=== PATIENT | male | born 1960 | race Caucasian/White ===

== ENCOUNTER 2020-04-19 09:44 | Outpatient (REF) | payer MEDICAID, SELFPAY ==
--- NOTE | 2020-04-22 09:50 | MHC.AU.P13 ---
Adult Audiological Evaluation Date of Visit: 04/19/20 Reason for Appointment: Audiological evaluation due to decreased hearing. Mr. June notes that his hearing has gradually been worsening over the years. He notes that he often doesn't hear his and has to turn the TV up loud. Does patient feel they have a hearing loss?: Yes If Yes, Which Ear?: Both Ears When Was Hearing Difficulty First Noticed?: Several years ago Has hearing been tested previously?: Yes Previous Hearing Test Results: Per patient report- Annual hearing screenings at work indicated a hearing loss. Records were not available to be reviewed today. Hearing Handicap Inventory: HHIE SCORE: 32 Based on HHIE score, patient has: Severe perceived hearing handicap Ear History: Family History of Hearing Loss?: Yes: Father and grandmother History of Ear Wax Buildup: Both Ears Bothersome Tinnitus/Ringing/Noises in Ears: Both ears- Intermittent, notices ~1x/week. Ear used on the phone: Right Ear Blocked/Full Sensation in Ear(s): Both Ears- Occasional feelings of blockage with minor pain that lasts for about 1 day. 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 Medication List: Glipizide 1 capsule PRN, Metformin 1 capsule PRN, Tamsulosin HCL Otoscopy: Right Ear: Unremarkable Left Ear: Unremarkable Tympanometry: Right Ear: Normal Middle Ear System (Type A) Left Ear: Normal Middle Ear System (Type A) Hearing Evaluation: Transducer(s) Used: Insert Earphones, Bone Conduction Method: Conventional Audiometry Stimuli Used: Pure Tones Right Ear: Description of Hearing: Normal hearing from 250-1000 Hz, sloping to a mild sensorineural hearing loss at 2000 Hz and steeply sloping to a moderate to moderately severe sensorineural hearing loss from 2407-4509 Hz. Left Ear: Description of Hearing: Normal hearing from 250-2000 Hz, steeply sloping to a moderate to moderately severe sensorineural hearing loss from 5380-8292 Hz. Speech Recognition Threshold (SRT): Method Used: Monitored Live Voice Stimuli Used: Spondee Words Right Ear: 15 dBHL Left Ear: 15 dBHL Word Discrimination: Method: Recorded Lists Word Lists Used: NU-6 Right Ear: 92% at 65 dBHL Left Ear: 96% at 65 dBHL Recommendations: Recommendations: Audiological re-evaluation in one year. Trial with amplification is recommended. Medical clearance from a physician is required before fitting. Hearing Aid Fitting will be scheduled when all materials arrive. See Hearing Aid Evaluation report for more information. Diagnosis: Primary Diagnosis: H90.3 Bilateral Sensorineural Hearing Loss Secondary Diagnosis: Services Performed: Services Performed: Comprehensive Audiological Evaluation (CPT 06922) Tympanometry (CPT 15931) Signature: Provider: Purvi Coffman, CCC-A
--- NOTE | 2020-04-22 09:52 | MHC.AU.P13 ---
Hearing Aid Evaluation- Binaural Date of Visit: 04/19/20 Description of Hearing: Moderate to moderately severe high-frequency hearing loss bilaterally. Summary: Mr. June reports significant difficulties hearing in most situations. He notes that he often cannot hear his and turns the TV up loud. Mr. 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 Today's testing indicates a moderate to moderately severe sensorineural hearing loss bilaterally. Binaural amplification is recommended in order to facilitate improved communication. Hearing aid options were discussed today. Mr. June is interested in REGINA style hearing aids. Hearing Instrument Selection: Right Ear: Goat Herder: [employer] Model: [employer] M70-13T Battery Size: 13 Color: P5 Lapidarist: Size 1 M Left Ear: Goat Herder: [employer] Model: [employer] M70-13T Battery Size: 13 Color: P5 Lapidarist: Size 1 M Diagnosis Code(s): Primary Diagnosis: H90.3 Bilateral Sensorineural Hearing Loss Signature: Provider: Purvi Coffman, [facility]
--- NOTE | 2020-04-22 09:53 | MHC.AU.MED ---
Medical Clearance for Hearing Instrumentation Date: 04/22/20 Patient Name: Timothy June Date of : 1960 Dear Erasto Ochoa MD, We have seen your patient on 04/22/20 and have determined that they are a candidate for amplification (See accompanying report). Specifically, they would benefit from: Hearing aid use in both ears There is a statute that addresses Medical Evaluation Requirements prior to fitting a patient with a hearing aid. According to [place] statute 265 CMR:6.03(1), (a) General. Except as provided in 265 CMR 6.03(1)(b), a hearing officer shall not sell a hearing aid unless the prospective user has presented to the hearing officer a written statement signed by a licensed physician that states that the patient's hearing loss has been medically evaluated and the patient may be considered a candidate for a hearing aid. The medical evaluation must have taken place within the preceding six months. Please note: Due to the [place] Statute referenced above, we cannot accept a signature other than that of a licensed physician. ENGINEER [employer]ILS and PA signatures cannot be accepted. I am in agreement with the above recommendation. There is no medical contraindication for hearing instrumentation. Physician Signature Date Physician Name (Printed)
== END 2020-04-19 09:45 | disposition home or self-care (01) ==
LOC: HO.SH 09:44
PROVIDERS: PCP Internal Medicine; Referring Provider Internal Medicine; Visit Provider Internal Medicine
DX: H90.3 Sensorineural hearing loss, bilateral (principal)
CPT/HCPCS: 92557; 92567; 92591

== ENCOUNTER 2020-05-09 13:43 | Outpatient (REF) | payer MEDICAID, SELFPAY | END 2020-05-09 13:44 | disposition home or self-care (01) | LOC: HO.HAP 13:43 | PROVIDERS: PCP Internal Medicine; Referring Provider Internal Medicine; Visit Provider Internal Medicine | DX: Z46.1 Encounter for fitting and adjustment of hearing aid (principal); H90.3 Sensorineural hearing loss, bilateral | CPT/HCPCS: V5011; V5020; V5160; V5261 ==

== ENCOUNTER 2020-06-03 12:09 | Outpatient (REF) | payer MEDICAID, SELFPAY | END 2020-06-03 12:10 | disposition home or self-care (01) | LOC: HO.HAP 12:09 | PROVIDERS: Visit Provider Internal Medicine | DX: Z13.89 Encounter for screening for other disorder (principal) ==

== ENCOUNTER 2020-09-06 11:31 | Outpatient (REF) | payer MEDICARE, MEDICAID, SELFPAY | END 2020-09-06 11:32 | disposition home or self-care (01) | LOC: HO.HAP 11:31 | PROVIDERS: Visit Provider Internal Medicine | DX: Z46.1 Encounter for fitting and adjustment of hearing aid (principal) | CPT/HCPCS: V5266 ==

== ENCOUNTER 2021-04-23 10:06 | Outpatient (REF) | payer OTHER, SELFPAY ==
--- NOTE | 2021-04-23 12:47 | MHC.AU.AHA ---
Adult Audiological Evaluation Date of Visit: 04/23/21 Reason for Appointment: History of hearing loss. Patient arrives to determine if there have been any changes in his hearing. Previous Hearing Test Results: At this clinic on 04/19/2020- Normal sloping to moderately-severe sensorineural hearing loss bilaterally Ear History: Ear Deformity: None Reported Recent Ear Drainage: None Reported Recent Ear Pain: None Reported Family History of Hearing Loss?: Yes: Father and grandmother Recent Ear Infections: None Reported Ear Infections in Childhood: None Reported Ear used on the phone: Right Ear History of occupational noise exposure?: Yes: Worked in [employer] for 43 years History: No Medical History: Medical History: Diabetes, Headache, Migraines, Rotator cuff surgery May 2018, C4-C5 fusion August 2019. Hearing Instrument History- Right Ear: Dietary Director: Phonak Model: Sm[employer]o M70-13T Serial Number: [id number] Battery Size: 13 Repair Warranty: 07/29/2023 Dispensed By: [facility] Date of Fittin05/09/2020 Hearing Instrument History- Left Ear: Dietary Director: Phonak Model: Smashruneo M70-13T Serial Number: [id number] Battery Size: 13 Warranty: 07/29/2023 Dispensed By: [facility] Date of Fittin05/09/2020 Otoscopy: Right Ear: Unremarkable Left Ear: Unremarkable Tympanometry: Tympanometry performed due to: To assess integrity of the middle ear system Right Ear: Normal Middle Ear System (Type A) Left Ear: Normal Middle Ear System (Type A) Hearing Evaluation: Transducer(s) Used: Insert Earphones Method: Conventional Audiometry Stimuli Used: Pure Tones Right Ear: Description of Hearing: Normal from 250-1000 Hz, sloping to moderately-severe sensorineural hearing loss Left Ear: Description of Hearing: Normal from 250-1000 Hz, sloping to moderately-severe sensorineural hearing loss Speech Recognition Threshold (SRT): Method Used: Recorded Lists Stimuli Used: Spondee Words Right Ear: 20 dBHL Left Ear: 20 dBHL Word Discrimination: Method: Recorded Lists Word Lists Used: W-22 Right Ear: 84% at 65 dBHL Left Ear: 92% at 65 dBHL Most Comfortable Level (MCL): Right Ear: 65 dBHL Left Ear: 65 dBHL Aided Testing: Aided word discrimination in quiet: 100% at 50 dBHL Aided word discrimination in noise (+10 SNR): 96% at 50 dBHL Comparison: Compared to the most recent evaluation: Hearing is stable. Recommendations: Audiological re-evaluation in one year. See Hearing Aid Follow-Up note for more information. Diagnosis: Primary Diagnosis: H90.3 Bilateral Sensorineural Hearing Loss Signature: Provider: Purvi Sheehan, MARCELO-A
--- NOTE | 2021-04-23 12:48 | MHC.AU.HFU ---
Hearing Instrument Follow-Up- Binaural Date of Visit: 04/23/21 Right Ear: Thread Milling Machine Set Up Operator: Phonak Model: miieo M70-13T Serial Number: [id number] Repair Warranty: 07/29/2023 Battery Size: 13 Color: P5 Network Director: Size 1 M Type of Dome: Small open Type of Wax Guard: Cerushield Dispensed By: [facility] Date of Fittin05/09/2020 Left Ear: Thread Milling Machine Set Up Operator: Phonak Model: Audeo M70-13T Serial Number: [id number] Repair Warranty: 07/29/2023 Battery Size: 13 Color: P5 Network Director: Size 1 M Type of Dome: Small open Type of Wax Guard: Cerushield Dispensed By: [facility] Date of Fittin05/09/2020 Follow-Up Summary: Patient was seen for audiological re-evaluation (see separate report for details). He reports that every few days, his right hearing aid seems to shut off by itself. If he taps it, the sound will come back on. Hearing aid maintenance performed on both instruments. The right hearing aid was placed in the dehumidifier in case of a moisture issue. The right 1M floriculture teacher was also replaced, in case of an intermittency with the wires. No programming changes made today. Recommendations: Recommendations: Patient will let us know if the right hearing aid continues to cut out. If so, it will need to be sent to [facility] for repair. Dispensed 42 batteries. Diagnosis Code(s): Primary Diagnosis: H90.3 Bilateral Sensorineural Hearing Loss Signature: Provider: Purvi Sheehan, MARCELO-A
== END 2021-04-23 10:07 | disposition home or self-care (01) ==
LOC: HO.SH 10:06
PROVIDERS: Visit Provider Internal Medicine
DX: Z46.1 Encounter for fitting and adjustment of hearing aid (principal); H90.3 Sensorineural hearing loss, bilateral
CPT/HCPCS: 92557; 92567; V5266

== ENCOUNTER 2023-08-20 10:40 | Outpatient (REF) | payer OTHER, SELFPAY ==
[2023-08-20 14:39] LABS: MANUAL DIFF FLAG NO
[2023-08-20 14:40] LABS: Basophils Percent Auto 0.1 % (0-2); Eosinophils Absolute Auto 0.1 X10*3/uL (0.0-0.4); Eosinophils Percent Auto 0.9 % (0-4); Hematocrit 48.7 % (42.0-52.0); Hemoglobin 16.1 g/dl (14.0-18.0); Imm Gran Abs Auto 0.06 X10*3/uL (0.00-0.03); Imm Gran Pct Auto 0.7 % (0.0-0.4); Lymphocytes Absolute Auto 1.6 X10*3/uL (1.2-4.9); Lymphocytes Percent Auto 19.4 % (20-40); Mean Corpuscular HGB Conc 33.1 g/dl (31.0-36.0); Mean Corpuscular Hemoglobin 28.1 pg (27.0-33.0); Mean Corpuscular Volume 85.1 fL (80.0-98.0); Mean Platelet Volume 10.9 fL (9.4-12.4); Monocytes Absolute Auto 0.5 X10*3/uL (0.1-1.2); Monocytes Percent Auto 6.1 % (2-11); Neutrophils Absolute Auto 5.9 x10*3/uL (2.0-8.3); Neutrophils Percent Auto 72.8 % (45-73); Platelet Count 148 X10*3/uL (160-400); Red Blood Count 5.72 X10*6/uL (4.60-5.80); Red Cell Distribution Width 13.2 % (11.0-16.0); White Blood Count 8.1 X10*3/uL (4.8-10.8)
[2023-08-20 14:54] LABS: Estimated Average Glucose 283 mg/dL; Hemoglobin A1c % 11.5 % (<6.0)
[2023-08-20 14:57] LABS: Alanine Aminotransferase 62 U/L (0-40); Albumin Level 4.2 g/dL (3.5-5.0); Alkaline Phosphatase 134 U/L (39-117); Anion Gap 14 (12-20); Aspartate Amino Transferase 45 U/L (5-37); Bilirubin Total 0.8 mg/dL (0.0-1.0); Blood Urea Nitrogen 15 mg/dL (9-16); Calcium 9.5 mg/dL (8.4-10.2); Carbon Dioxide 24 mmol/L (22-29); Chloride 104 mmol/L (96-108); Cholesterol 181 mg/dL (<200); Estimated Glomerular Filt Rate > 60; Glucose Fasting 279 mg/dL (60-99); HDL Cholesterol 52 mg/dL (>40); Iron 71 mcg/dL (45-160); LDL Cholesterol Calculated 97 mg/dL (<100); Percent Iron Saturation 24 % (15-50); Potassium 4.1 mmol/L (3.3-5.1); Sodium 138 mmol/L (135-145); Total Iron Binding Capacity 295 mcg/dL (228-428); Triglycerides 162 mg/dL (<150); Unsaturated Iron Binding 224 ug/dL
[2023-08-20 15:19] LABS: TSH reflex Free T4 1.19 uIU/mL (0.32-4.0)
[2023-08-20 15:26] LABS: Folate 7.7 ng/mL (> or = 4.0); Vitamin B12 316 pg/mL (200-900)
[2023-08-20 15:27] LABS: Creatinine Urine 86.39 mg/dL; Microalbum/Creatinine Ratio Ur 63.6 ug/mg cr (<30)
== END 2023-08-20 10:41 | disposition home or self-care (01) ==
LOC: HO.CHCLDS 10:40
PROVIDERS: Visit Provider Internal Medicine
DX: E11.65 Type 2 diabetes mellitus with hyperglycemia (principal)
CPT/HCPCS: 36415; 80053; 80061; 82043; 82570; 82607; 82746; 83036; 83540; 84443; 85025

== ENCOUNTER 2024-09-08 10:50 | Outpatient (REF) | payer MEDICARE, MEDICAID, SELFPAY ==
--- OUTSIDE RECORDS SUMMARY | 2024-09-08 11:45 | XMS_ITS | Encounter Summary ---
Author Organization [employer] Address [address] [place] [address] Care Team Providers Care Leach Runner Name Role Phone Erasto Carbajal MD Primary Care Prov ider Reason for Visit * Reason Comments Med Refill Encounter Details Date Type Department Care Team (Late st Contact Info) Description 09/01/2023 Refill [facility] [address], [place] [phone] Erasto Carbajal MD [address] [place] [address] Mild intermittent asthma, unspecified whether complicated Social History Tobacco Use Types Packs/Day Years Used Date Smoking Tobacco: Never Smokeless Tobacco: Never Alcohol Use Standard Drinks/Week Comments Never 0 (1 standard drink = 0.6 oz pur e alcohol) PHQ-2 Answer Date Recorded Patient Health Questionnaire-2 Score 2 03/05/2023 Housing Stability Answer Date Recorded What is your housing situation today? I have dangelo jacksno 03/19/[address] you li ve. Do you have problems with any of the following? None of the above 03/19/2023 Food Insecurity Answer Date Recorded Within the past 12 months, y ou worried that your food would run out before you got money to buy more: Never True 03/19/2023 Within the past 12 months,th e food you bought just didn't last and you didn't have enough money to get more: Never True Transportation Answer Date Recorded In the past 12 months, has l ack of transportation kept you from medical appts, meetings, work or from getting things needed for daily living? No 03/19/2023 Utilities Answer Date Recorded In the past 12 months, has t he electric, gas, oil or water company threatened to shut off services in your home? No 03/19/2023 Depression Answer Date Recorded Patient Health Questionnaire-2 Score 2 03/05/2023 Sex and Gender Information Value Date Recorded Sex Assigned at Male 03/30/2022 10:36 AM EDT Legal Sex Male 10:36 AM EDT Gender Identity Male 03/30/2022 10:36 AM EDT Sexual Orientation Straight 03/30/2022 10 :36 AM EDT documented as of this encounter Plan of Treatment Upcoming Encounters Date Type Department Care Team ([facility] st Contact Info) Description 12/18/2024 10:00 AM EDT Medication Management [facility] [address], [place] [phone] Regina Headley, PharmD [address] [place] [address] documented as of this encounter Visit Diagnoses Diagnosis Mild intermittent asthma, unspecified whether complicated documented in this encounter Care Teams Leach Runner Relationship Specialty Start Date End Date Erasto Carbajal MD [address], [place] [phone] PCP - General Internal Medicine 08/24/19 documented as of this encounter
--- OUTSIDE RECORDS SUMMARY | 2024-09-08 11:45 | XMS_ITS | Data Portability ---
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 Fatigued by end of treatment; weakness into ER and flexion strengthening. Plan: Continue PT @ 2x/wk for one more week then 1x a week fo 3 wks then d/c to I HEP, to decrease pain, increase ROM, optimize mechanics for functional movement, and facilitate independence in ADL's. [email or web address] Not available 08/02/2024 08:33:20 08/09/2024 08/09/2024 Assessment: Making slow steady progress increasing ROM with ongoing tenderness in bicep area. Improving functional strength and mobility. Plan: Continue PT @ 2x/wk for one more week then 1x a week fo 2 wks then d/c to I HEP, to decrease pain, increase ROM, optimize mechanics for functional movement, and facilitate independence in ADL's. [email or web address] Not available 08/09/2024 08:50:30 08/18/2024 08/18/2024 Assessment: Improving overall functional strength and mobility but with ongoing tenderness in bicep area. Plan: Continue PT @ 1x a week for 1 more wk then d/c to I HEP, to decrease pain, increase ROM, optimize mechanics for functional movement, and facilitate independence in ADL's. [email or web address] Not available 08/18/2024 08:44:48 08/23/2024 08/23/2024 Assessment: Continues to make steady progress increasing ROM and strength, mild tenderness in bicep area Plan: D/c to I HEP Not available 08/23/2024 09:02:00 Plan of Treatment Reminders Order Date Submit Date Provider Last Modified By Organization Details Last Modified Time Details Appointments RECHECK 15 2024 01:00P M Cynthia Wheeler MD Not available Not available Not available Lab None recorded. Referral None recorded. Procedures None recorded. Surgeries None recorded. Imaging MRI, shoulder, w/o contrast - L shoulder MRI without contrast ?ing retear 2024 025 [email or web address] [facility] ([facility] [address], [place], [address], 09/04/2024 17:44:02 Medication Orders None recorded. Patient TargetsNo targets recorded. Patient InstructionsNo instructions recorded. Reason for Referral None Reported. Problems Name Problem SNOMED Code Status Onset Date Resolution Date Notes Provider Name and Address Organization Details Recorded Time Sprain of shoulder rotator cuff 880767571538 Active 2018 Problem Code: S43.421A ; Problem Code Type: ICD-10; Status: 'A'; Not Available [facility] 4 11:28:39 Problem Notes None recorded. Procedures Surgical History Date Name Laterality Status Provider Name and Address Organization Details Recorded Time 4 83020 Therapeutic Exercise (1:1) completed Sonam Goff PTA [address], [place], [address], [facility] 04/25/2024 12:09:19 4 28698: Hot or Cold Pack completed Sonam Goff [employer] INSPECT[employer] [address], [place], [address], [facility] 04/25/2024 12:09:19 4 75333: Manual therapy completed Sonam Goff [employer] [address], [place], [address], [facility] 04/25/2024 12:09:19 4 87592 Therapeutic Exercise (1:1) completed Serjio Mayes, PT [address], [place], [address], [facility] 04/23/2024 18:55:02 4 24589: Hot or Cold Pack completed Serjio Mayes, PT [address], [place], [address], [facility] 04/20/2024 15:22:51 4 21641: Manual therapy completed Serjio Mayes, PT [address], [place], [address], [facility] 04/20/2024 15:22:52 4 05744 Therapeutic Exercise (1:1) completed Sonam Goff [employer] [address], [place], [address], [facility] 04/19/2024 12:18:34 4 05745: Hot or Cold Pack completed Sonam Goff [employer] INSPECT[employer] [address], [place], [address], [facility] 04/18/2024 14:53:31 4 64294: Manual therapy completed Sonam Goff [employer] INS[employer]OR [address], [place], [address], [facility] 04/19/2024 12:18:38 4 05737 Therapeutic Exercise (1:1) completed Sonam Goff PTA [address], [place], [address], [facility] 04/11/2024 14:40:59 4 22630: Hot or Cold Pack completed Sonam Goff [employer] INSPECTOR [address], [place], [address], [facility] 04/11/2024 14:40:59 4 35799: Manual therapy completed Sonam Goff PTA [address], [place], [address], [facility] 04/11/2024 14:40:59 4 59398 Therapeutic Exercise (1:1) completed Sonam Goff, [employer] [address], [place], [address], [facility] 04/07/2024 15:00:20 4 61556: Hot or Cold Pack completed Sonam Goff, [employer] INSPECTOR [address], [place], [address], [facility] 04/07/2024 15:00:20 4 12018: Manual therapy completed Sonam Goff [employer] INSPECTOR [address], [place], [address], [facility] 04/07/2024 15:00:20 4 65081 Therapeutic Exercise (1:1) completed Sonam Goff [employer] INSPECTOR [address], [place], [address], [facility] 04/06/2024 15:37:11 4 31121: Hot or Cold Pack completed Sonam Goff [employer] W[employer] INSPECTOR [address], [place], [address], [facility] 04/06/2024 15:37:11 4 36210: Manual therapy completed Sonam Goff [employer]AGE W[employer] INSPECTOR [address], [place], [address], [facility] 04/06/2024 15:37:12 4 90443 Therapeutic Exercise (1:1) completed Serjio Mayes, PT [address], [place], [address], [facility] 03/28/2024 14:16:37 58652: Hot or Cold Pack completed Serjio Mayes, PT [address], [place], [address], [facility] 03/28/2024 14:16:37 28027: Manual therapy completed Serjio Sugey, PT [address], [place], [address], [facility] 03/28/2024 14:16:37 84401 Therapeutic Exercise (1:1) completed Serjioshirlene Goelricci, PT [address], [place], [address], [facility] 03/27/2024 06:50:34 38586: Hot or Cold Pack completed Serjioshirlene Mayes, PT [address], [place], [address], [facility] 03/27/2024 10:19:44 82719: Manual therapy completed Serjio Manasaricci, PT [address], [place], [address], [facility] 03/27/2024 10:20:07 48784 Therapeutic Exercise (1:1) completed Serjio Goelricci, PT [address], [place], [address], [facility] 03/23/2024 11:02:59 59513: Low complexity PT Eval completed Serjio Goelricci, PT [address], [place], [address], [facility] 03/23/2024 11:02:52 Imaging Results None recorded. Procedure Notes None recorded. Medical Equipment None Reported. Allergies Allergen ID Allergen Name Allergen Category Reaction Reaction Severity Criticality Documentation Date Start Date Code Code System Note Provider Name and Address Organization Details Recorded Time 174824 morphine medicatio n Not available Not available Not available 02/03/2024 7052 RxNorm STEVEN lott [facility] 10:53:08 206571 tree and shrub pollen environme nt,medica tion cough mild Not available 03/01/2024 85579 UNK JORGITO lott [facility] 07:28:44 658186 house dust mite environme nt cough moderate Not available 03/01/2024 18521 UNK JORGITO BENAVIDES [facility] 4 07:28:44 105415 mold extract environme nt cough moderate Not available 03/01/2024 82201 8 RxNorm JORGITO BENAVIDES [facility] 4 07:28:44 282388 Tree Pollen medicatio n cough moderate Not available 03/01/2024 79921 UNK JORGITO BENAVIDES [facility] 4 15:14:28 Medications Name Sig Start Date Stop Date Status Note LastModified by Organization Details LastModified Time cyclobenzap rine 10 mg tablet TAKE 1 TABLET BY MOUTH THREE TIMES DAILY FOR 10 DAYS 02/28 completed Not Available Not Available Not Available metformin 500 mg tablet TAKE ONE TABLET TWICE DAILY 02/28 completed Not Available Not Available Not Available fluticasone 250 mcg-salmete rol 50 mcg/dose blistr powdr for inhalation INHALE 1 PUFF BY MOUTH TWICE DAILY RINSE MOUTH AFTER USE active Not Available Not Available No t Available aspirin 325 mg tablet TAKE ONE TABLET DAILY FOR 14 DAYS active Not Available Not Available No t Available hydrocodone 5 mg-acetamin ophen 325 mg tablet TAKE 1 TO 2 TABLETS EVERY 6 HOURS NEEDED FOR PAIN 02/28 completed Not Available Not Available Not Available meloxicam 15 mg tablet TAKE ONE TABLET BY MOUTH ONCE DAILY active Not Available Not Available No t Available glipizide 10 mg tablet TAKE ONE TABLET ONCE DAILY BEFORE A MEAL 02/28 completed Not Available Not Available Not Available prednisone 20 mg tablet TAKE ONE TABLET EVERY MORNING FOR FIVE DAYS 02/28 completed Not Available Not Available Not Available acetaminoph en 500 mg tablet TAKE TWO TABLETS THREE TIMES DAILY active Not Available Not Available No t Available docusate sodium 100 mg capsule TAKE ONE CAPSULE DAILY NEEDED 07/03 completed Not Available Not Available Not Available omeprazole 20 mg capsule,del ayed release TAKE TWO CAPSULES BY MOUTH TWICE DAILY 02/28 completed Not Available Not Available Not Available montelukast 10 mg tablet TAKE ONE TABLET DAILY 2023 active Not Available Not Available Not Avai lable hydroxyzine HCl 25 mg tablet TAKE ONE TABLET BY MOUTH THREE TIMES DAILY IN THE MORNING, AT NOON, AND AT BEDTIME NEEDED FOR ANXIETY active Not Available Not Available No t Available finasteride 5 mg tablet TAKE ONE TABLET DAILY active Not Available Not Available No t Available naproxen 500 mg tablet tkk ONE TABLET TWICE DAILY FOR FIVE DAYS active Not Available Not Available No t Available Ventolin HFA 90 mcg/actuati on aerosol inhaler INHALE TWO PUFFS EVERY 4 TO 6 HOURS NEEDED active Not Available Not Available No t Available oxycodone 5 mg tablet TAKE ONE TABLET EVERY 4 HOURS NEEDED 07/03 completed Not Available Not Available Not Available oxycodone HCl-oxycodo ne-ASA 02/28 completed Not Available Not Available Not Available blood pressure test kit-large cuff USE TO check BLOOD pressure ONCE DAILY 07/03 completed Not Available Not Available Not Available Jardiance 25 mg tablet TAKE ONE TABLET DAILY 2024 active Not Available Not Available Not Avai lable Trulicity 1.5 mg/0.5 mL subcutaneou s pen injector 03/01 completed Not Available Not Available Not Available Trulicity 0.75 mg/0.5 mL subcutaneou s pen injector INJECT ONE PEN (=0.75MG) SUBCUTANE OUSLY ONCE A WEEK DIRECTED 03/01 completed Not Available Not Available Not Available Trulicity 3 mg/0.5 mL subcutaneou s pen injector INJECT ONE PEN (=3MG) SUBCUTANE OUSLY ONCE A WEEK 07/03 completed Not Available Not Available Not Available Trulicity 4.5 mg/0.5 mL subcutaneou s pen injector INJECT ONE PEN (=4.5MG) SUBCUTANE OUSLY ONCE A WEEK DIRECTED active Not Available Not Available No t Available Vitals Date Recorded Body height Body mass index (BMI) Body weight Provider Name and Address Organization Details Last Updated DateTime 09/04/2024 177.8 cm 31.6 kg/m2 14589.32 g JORGITO BENAVIDES [place] - [place] [facility] 09/04/2024 08:34:35 Social History Question Answer Notes LastModified by Organizat ion Details LastModified Time Tobacco Smoking Status Never Smoker JORGITO lott [place] - [place] [facility] 03/01/2024 07:28:46 How Many Times Per Week Do You Consume Alcohol? Less Than 1 Time Per Week Information not available 03/01/2024 Do You Or Have You Ever Used E-cigarettes Or Vape? Never Used Electronic Cigarettes Information not available 03/01/2024 What Is Your Relationship Status? Information not available 03/01/2024 Do You Use Any Illicit Or Recreational Drugs? No Information not available 03/01/2024 Do You Or Have You Ever Used Any Other Forms Of Tobacco Or Nicotine? No Information not available 03/01/2024 Sex: Unknown Functional Status None recorded. Mental Status None recorded. Family History Nothing Reported. Medical History Condition Response Allergies/Hayfever Y Coronary Artery Disease N Anxiety/Depression Y Breathing or lung disorders N Emphysema N Nerve Disorders N Thyroid Problems N COPD N Pacemaker N Anemia N Kidney/Bladder Problems N Vascular Disease N Heart Trouble N Heart Attack (MD) N Gastrointestinal Disease N Cholesterol N Diabetes Y Autoimmune disease N Bleeding Disorder N Inflammatory Joint disease N Orthotics N Arthritis Y Seizures/Epilepsy N Blood Clot N AIDS/HIV N Congestive Heart Failure (CHF) N Acid Reflux (GERD) N Cancer N Stroke N Asthma Y Circulation Problems N Peripheral Vascular Disease N Sleep Apnea Y Hepatitis N Heart Disease N Rheumatoid Arthritis N Arrhythmia N Pulmonary Embolism N Headaches N Fibromyalgia N Hypertension N Osteoporosis N Past Encounters Encounter ID Performer Location Encounter Start Date Encounter Closed Date Diagnosis/Indication Diagnosis SNOMED-CT Code Diagnosis ICD10 Code Diagnosis Note [id number] LANDRY Townsend [address] [place] [address] 02/03/2024 10:05:34 02/16/2024 14:19:55 Pain of left shoulder joint 3156874726 1581083 M25.429 [id number] MD Keira Newberry [address] floor [address] [place] [address] 03/01/2024 14:33:30 03/23/2024 13:14:45 Full thickness rotator cuff tear 411427318 M75.689 [id number] MD Keira Newberry [address] floor [address] [place] [address] 03/24/2024 12:08:40 04/18/2024 09:09:01 Follow-up orthopedic assessment [id number] Z47.89 [id number] Serjio Mayes, PT [facility] [address] [place] [address] 03/23/2024 07:57:07 03/23/2024 10:24:53 Rupture of rotator cuff of left shoulder 6598937508 [id number] M75.156 [id number] Serjio Mayes, PT [facility] [address] [place] [address] 03/27/2024 08:02:45 03/27/2024 09:28:14 Rupture of rotator cuff of left shoulder 4163391185 [id number] M75.021 [id number] Serjio Mayes, PT [facility] [address] [place] [address] 03/29/2024 07:46:56 03/29/2024 09:22:42 Rupture of rotator cuff of left shoulder 3971155304 [id number] M75.937 [id number] Serjio Mayes, PT [facility] [address] [place] [address] 04/07/2024 09:45:58 04/07/2024 10:45:15 Rupture of rotator cuff of left shoulder 4118536164 [id number] M75.951 [id number] Serjio Mayes, PT [facility] [address] [place] [address] 04/10/2024 11:16:10 04/10/2024 12:19:46 Rupture of rotator cuff of left shoulder 2588032762 [id number] M75.570 [id number] Serjio Mayes, PT [facility] [address] [place] [address] 04/12/2024 10:47:56 04/12/2024 12:00:30 Rupture of rotator cuff of left shoulder 0558711690 [id number] M75.838 [id number] Serjio Mayes, PT [facility] [address] [place] [address] 04/19/2024 10:43:21 04/19/2024 11:46:04 Rupture of rotator cuff of left shoulder 6134810496 [id number] M75.899 [id number] Serjio Mayes, PT [facility] [address] [place] [address] 04/21/2024 08:51:59 04/21/2024 09:55:38 Rupture of rotator cuff of left shoulder [id number] M75.440 [id number] Serjio Mayes, PT [facility] [address] [place] [address] 04/25/2024 12:17:44 04/25/2024 13:17:37 Rupture of rotator cuff of left shoulder 7249306788 [id number] M75.488 [id number] Serjio Mayes, PT [facility] [address] [place] [address] 05/01/2024 08:18:02 05/01/2024 09:10:00 Rupture of rotator cuff of left shoulder 8978334082 [id number] M75.656 [id number] Serjio Mayes, PT [facility] [address] [place] [address] 05/03/2024 08:23:37 05/03/2024 09:03:54 Rupture of rotator cuff of left shoulder 4249436687 [id number] M75.358 [id number] Avis Kenneth, [employer] [facility] [address] [place] [address] 05/04/2024 08:54:20 05/19/2024 15:35:06 [id number] Serjio Mayes, PT [facility] [address] [place] [address] 05/10/2024 09:22:16 05/10/2024 10:07:17 Rupture of rotator cuff of left shoulder 8001952666 [id number] M75.247 [id number] Serjioshirlene Goelricci, PT [facility] [address] [place] [address] 05/17/2024 09:17:10 05/17/2024 10:08:56 Rupture of rotator cuff of left shoulder 5715789017 [id number] M75.233 [id number] Serjio Mayes, PT [facility] [address] [place] [address] 05/19/2024 06:54:34 05/19/2024 09:53:52 Rupture of rotator cuff of left shoulder 7888344160 [id number] M75.450 [id number] Serjio Mayes, PT [facility] [address] [place] [address] 05/22/2024 09:22:15 05/22/2024 10:37:26 Rupture of rotator cuff of left shoulder [id number] M75.622 [id number] MD JULITO [facility] [address] [place] [address] 06/02/2024 09:22:42 06/02/2024 09:55:31 Rupture of rotator cuff of left shoulder [id number] M75.328 [id number] Serjio Mayes, PT [facility] [address] [place] [address] 06/05/2024 09:51:25 06/05/2024 10:40:46 Rupture of rotator cuff of left shoulder [id number] M75.146 [id number] Cynthia Wheeler MD [facility] [address] [place] [address] 06/09/2024 07:48:45 06/09/2024 08:49:43 Rupture of rotator cuff of left shoulder [id number] M75.767 [id number] Gabbi Gastelum DPT [facility] [address] [place] [address] 06/12/2024 07:22:23 06/12/2024 08:15:21 Rupture of rotator cuff of left shoulder [id number] M75.894 [id number] Gabbi Gastelum DPT [facility] [address] [place] [address] 06/16/2024 07:48:42 06/16/2024 09:01:16 Rupture of rotator cuff of left shoulder [id number] M75.331 [id number] Serjio Goelricci, PT [facility] [address] [place] [address] 06/21/2024 08:22:38 06/21/2024 09:17:56 Rupture of rotator cuff of left shoulder [id number] M75.169 [id number] MD JULITO New[facility] [address] [place] [address] 07/03/2024 09:23:57 07/17/2024 12:05:00 Follow-up orthopedic assessment [id number] Z47.89 [id number] Serjio Mayes, PT [facility] [address] [place] [address] 06/23/2024 07:50:01 06/23/2024 08:25:15 Rupture of rotator cuff of left shoulder [id number] M75.603 [id number] Serjio Mayes, PT [facility] [address] [place] [address] 06/26/2024 07:53:31 06/26/2024 08:21:12 Rupture of rotator cuff of left shoulder [id number] M75.789 [id number] Serjio Sugey, PT [facility] [address] [place] [address] 06/28/2024 08:16:07 06/28/2024 09:06:33 Rupture of rotator cuff of left shoulder [id number] M75.921 [id number] MD [facility] [address] [place] [address] 07/03/2024 08:22:03 07/03/2024 10:25:51 Rupture of rotator cuff of left shoulder [id number] M75.396 [id number] Serjio Mayes, PT [facility] [address] [place] [address] 07/05/2024 08:26:18 07/05/2024 09:01:02 Rupture of rotator cuff of left shoulder [id number] M75.378 [id number] Serjio Mayes, PT [facility] [address] [place] [address] 07/10/2024 07:52:20 07/10/2024 08:34:30 Rupture of rotator cuff of left shoulder [id number] M75.569 [id number] Serjio Mayes, PT [facility] [address] [place] [address] 07/12/2024 07:48:25 07/12/2024 08:41:25 Rupture of rotator cuff of left shoulder [id number] M75.162 [id number] Gabbidonavon Gastelum, DPT [facility] [address] [place] [address] 07/17/2024 07:38:11 07/17/2024 09:22:53 Rupture of rotator cuff of left shoulder [id number] M75.470 [id number] Serjio Mayes, PT [facility] [address] [place] [address] 07/19/2024 07:46:27 07/19/2024 08:31:13 Rupture of rotator cuff of left shoulder [id number] M75.690 [id number] Serjio Mayes, PT [facility] [address] [place] [address] 07/24/2024 07:51:43 07/24/2024 08:31:17 Rupture of rotator cuff of left shoulder [id number] M75.432 [id number] Serjio Mayes, PT [facility] [address] [place] [address] 08/02/2024 07:12:53 08/02/2024 08:03:04 Rupture of rotator cuff of left shoulder [id number] M75.186 [id number] Serjio Mayes, PT [facility] [address] [place] [address] 08/09/2024 07:19:56 08/09/2024 08:06:17 Rupture of rotator cuff of left shoulder [id number] M75.806 [id number] Serjio Mayes, PT [facility] [address] [place] [address] 08/18/2024 07:23:38 08/18/2024 10:11:05 Rupture of rotator cuff of left shoulder [id number] M75.798 [id number] Serjio Mayes, PT [facility] [address] [place] [address] 08/23/2024 07:58:20 08/23/2024 08:53:09 Rupture of rotator cuff of left shoulder [id number] M75.593 [id number] MD JULITO New[facility] [address] [place] [address] 09/04/2024 08:30:04 09/04/2024 08:49:45 Pain of left shoulder joint [id number] [id number] M25.512 Health Concerns Section Related Observation LastModified by Organization Detai ls LastModified Time None Recorded Concern Status LastModified by Organization Details LastModified Time None Recorded Advance Directives Directive None Recorded Payers Encounter Date Sequence Insurance Name Policy Number Policy Nair Covered Member ID Nair Member ID Guarantor Name 08/02/2024 1 [place] [employer] Timothy M Strange [id number] 1 Timothy M Strange 08/09/2024 1 [place] [employer] Timothy M Strange [id number] 1 Timothy M Strange 08/18/2024 1 [place] [employer] Timothy M Strange [id number] 1 Timothy M Strange 08/23/2024 1 [place] [employer] Timothy M Strange [id number] 1 Timothy M Strange 09/04/2024 1 [place] [employer] Timothy M Strange [id number] 1 Timothy M Strange Notes Date Note Type Note Provider Name and Address Organization Details Recorded Time 08/02/2024 text/html Pt reports 5/10 px in bicep area, slowly feeling stronger. Sonam DANA Goff [address], [place], [address], [facility] 08/02/2024 08:34:15 08/09/2024 text/html Pt reports 5/10 px in bicep area and notes some new tingling down into hand with certain shoulder movements. Sonam DANA Goff [address], [place], [address], [facility] 08/09/2024 08:50:57 08/18/2024 text/html Pt reports 2/10 px iat rest with some occasional increase in px to 5/10 in bicep area with soreness. Sonam Goff PTA [address], [place], [address], [facility] [facility] 08/18/2024 08:45:09 08/23/2024 text/html Pt reports 2/10 px in bicep area, overall happy with progress. Sonam DANA Goff [address], [place], [address], [facility] 08/23/2024 09:02:31 09/04/2024 text/html Surgery: Left shoulder arthroscopic intra-articular 1 anchor subscapularis, 1+1 double row supraspinatus repair, arthroscopic long head biceps tenodesis, [facility]. Interval History: The patient returns today in follow-up now approximately 6 months out from surgery as above. Doing fairly well. Recently completed physical therapy. Continues with exercises on his own at home, currently working on end range stretching and gradual strengthening progression. Pain levels have improved but still getting some achiness over the lateral brachium. Occasional crepitus. No issues with incisions. No numbness or tingling in arm or hand. Past family, medical, social history and review of systems have been reviewed and updated on the medical history sheet saved to the patient's chart. A 12-point review of systems is negative x12 except as noted above and/or on the medical history sheet. Examination: Pleasant 64-year-old gentleman in no acute distress. On exam of the Left upper extremity, arthroscopic portal incisions are nicely healed. No significant swelling or bruising. No evidence for Gregg deformity. Active forward elevation 170, passive ER 65 with a reproducible click at approximately 30 degrees ER; IR L4. 5/5 with ER and IR, 4/5 with empty can. Pain with resisted ER and empty can testing. Posterior shoulder discomfort with Yergason's and bear hug. Sensation intact in axillary and LABC distributions. Fires EPL, FPL and intrinsics. Hand is warm and well perfused. Imaging: Deferred Impression: 64 year old right hand dominant gentleman, now approximately 6 months out from surgery as above. Still having some pain, though somewhat improved over the past 2 months. Plan: His exam overall is reassuring for healing repairs, but given lingering symptoms we decided to go ahead with an MRI to ensure that everything is indeed looking okay. We will plan to see the patient back once the MRI is done to review the results and talk about next steps based on the findings. [employer] [facility] speech recognition edge cutter software was used to create portions of this document. An attempt at proofreading has been made to minimize errors. Please call for corrections. Cynthia Wheeler MD [address] [place], [place] [address]tyson Suite [facility], [place], [address], [facility] - [facility] 09/04/2024 08:49:42
--- OUTSIDE RECORDS SUMMARY | 2024-09-08 11:45 | XMS_ITS | Encounter Summary ---
Author Organization [employer] Address [address] [place] [address] Care Team Providers Care City Secretary Name Role Phone Erasto Carbajal MD Primary Care Prov ider Encounter Details Date Type Department Care Team (Late Contact Info) Description 02/18/2023 Orders Only [facility] MED & PEDS [address] [place] [address] Leandra Cervantes LPN Social History Tobacco Use Types Packs/Day Years Used Date Smoking Tobacco: Never Assessed Sex and Gender Information Value Date Recorded Sex Assigned at Male 03/30/2022 10:36 AM EDT Legal Sex Male 10:36 AM EDT Gender Identity Male 03/30/2022 10:36 AM EDT Sexual Orientation Straight 03/30/2022 10 :36 AM EDT documented as of this encounter Plan of Treatment Upcoming Encounters Date Type Department Care Team (Late st Contact Info) Description 12/18/2024 10:00 AM EDT Medication Management [facility] MED & PEDS [address] [place] [address] Regina Headley, PharmD [address] [place] [address] documented as of this encounter Visit Diagnoses Not on filedocumented in this encounter Care Teams City Secretary Relationship Specialty Start Date End Date Erasto Carbajal MD [address] [place] [address] PCP - General Internal Medicine 3/26/20 documented as of this encounter
--- OUTSIDE RECORDS SUMMARY | 2024-09-08 11:45 | XMS_ITS | Encounter Summary ---
Author Organization [employer] Address [address] [facility] [address] [place] [address] Care Team Providers Care Senior Structural Engineer Name Role Phone Erasto Carbajal MD Primary Care Prov ider Reason for Visit * Reason Onset Date Comments Medication Question 02/18/2024 Encounter Details Date Type Department Care Team (Late st Contact Info) Description 02/18/2024 Telephone [facility] MEDICINE [address] [place] [address] Erasto Carbajal MD [address] [place] [address] Medication Question Social History Tobacco Use Types Packs/Day Years Used Date Smoking Tobacco: Never Smokeless Tobacco: Never Alcohol Use Standard Drinks/Week Comments Never 0 (1 standard drink = 0.6 oz pur e alcohol) PHQ-2 Answer Date Recorded Patient Health Questionnaire-2 Score 2 03/05/2023 Housing Stability Answer Date Recorded What is your housing situation today? I have dangelo jackson 03/19/[address] you li [...] AM EDT documented as of this encounter Miscellaneous Notes * Telephone Encounter - Yuri Arevalo - 02/18/2024 3:36 PM EDT Tc from [place] with Pharmacy and [facility] stating that they believe pt would benefit on being on a Statin medication due to ADA guidelines for patients over 40 yrs documented in this encounter Plan of Treatment Upcoming Encounters Date Type Department Care Team (Late st Contact Info) Description 12/18/2024 10:00 AM EDT Medication Management [facility] MED & PEDS [address] [place], [place] [phone] Regina Headley, PharmD [address] [place] [address] documented as of this encounter Visit Diagnoses Not on filedocumented in this encounter Care Teams Senior Structural Engineer Relationship Specialty Start Date End Date Erasto Carbajal MD [address] [place] [address] PCP - General Internal Medicine 08/24/19 documented as of this encounter
--- OUTSIDE RECORDS SUMMARY | 2024-09-08 11:45 | XMS_ITS | Clinical Summary ---
Author Organization [employer] Address [address] [place] [address] 7[address] [place] [address] Care Team Providers Care Medical Corps Officer Name Role Phone Erasto Carbajal MD Primary Care Prov ider Allergies No known active allergies Medications albuterol 108 (90 Base) MCG/ACT inhalerIndicati ons:Mild intermittent asthma, unspecified whether complicated INHALE TWO PUFFS EVERY 4 TO 6 HOURS NEEDED 8.5 g 08/20/19 24 Active insulin pen needle 29G x 5mm misc Use as instructed 100 each 12 10/05/19 24 025 Active Blood Pressure kit 1 kit Once per day. 1 kit 11/24/19 24 Active empagliflozin (Jardiance) 25 MG Take 1 tablet (25 mg) by mouth Once per day. 90 tablet 3 01/27/20 24 025 Active meloxicam (Mobic) 15 MG tablet TAKE ONE TABLET BY MOUTH ONCE DAILY 30 tablet 2 03/21/20 24 Active hydrOXYzine HCl (Atarax) 25 MG tablet Take 1 tablet (25 mg) by mouth if needed in the morning, at noon, and at bedtime for anxiety. 90 tablet 3 03/28/20 24 Active finasteride (Proscar) 5 MG tablet Take 5 mg by mouth Once per day. Do not crush, chew, or split. Active Fluticasone-Jcarlos meterol 250-50 MCG/ACT aerosol powder Inhale 250 mg 2 times daily. 60 each 3 03/28/20 24 Active Dulaglutide (Trulicity) 4.5 MG/0.5ML solution auto-injectorIn dications:Type 2 diabetes mellitus with hyperglycemia, without long-term current use of insulin (CMS/HCC) Inject 4.5 mg under the skin 1 (one) time per week. 2 mL 5 09/09/19 25 Active Dulaglutide (Trulicity) 4.5 MG/0.5ML solution auto-injectorIn dications:Type 2 diabetes mellitus with hyperglycemia, without long-term current use of insulin (CMS/HCC) Inject 4.5 mg under the skin 1 (one) time per week. 3 mL 3 03/28/20 24 025 Discontinued(R eorder (will not trigger notification to Pharmacy)) Active Problems Problem Noted Date Diagnosed Date Elevated blood-pressure read ing, without diagnosis of hypertension 10/05/2023 Assessment & Plan (10/05/2023 7:13 PM EDT): Told to keep a bp log at home, keep low sodium diet, if bp >130/90, will consider starting michelle/arb Chronic left shoulder pain 10/05/2023 Assessment & Plan (01/16/2024 10:23 PM EDT): Will provide meloxicam, will refer to ortho Assessment & Plan (10/05/2023 7:14 PM EDT): Will order a left shoulder xray, will place PT referral, apply cold pads, avoid heavy lifting, call back if not improving Liver cyst 07/31/2023 Assessment & Plan (07/31/2023 11:05 AM EST): Incidental finding, will order a liver ct to characterize lesion Kidney cysts 07/31/2023 Assessment & Plan (07/31/2023 11:06 AM EST): Right kidney suspected cyst incidentally found, will order a kidney ultrasound Acute right-sided low back pain with right-sided sciatica 07/31/2023 Assessment & Plan (07/31/2023 11:07 AM EST): Will provide prednisone and muscle relaxant, continue resting, applying ice, and avoid heavy lifting Anxiety 06/30/2023 Assessment & Plan (06/30/2023 12:37 PM EST): Followed by therapist, will provide hydroxyzine to be taken as needed Class 1 obesity 03/05/2023 Obstructive sleep apnea 03/05/2023 Type 2 diabetes mellitus wit h hyperglycemia, without long-term current use of insulin 03/05/2023 Assessment & Plan (03/28/2024 11:59 AM EDT): Improving, will increase trulicity to 4.5mg, jardiance, new labs will be ordered, follow up in 3 months Assessment & Plan (01/27/2024 11:07 AM EDT): Improved, patient complains of diarrhea associated with metformin (will discontinue), also will disocntinue glipizide due to risk of hypoglycemia (he is 63yrs and is living by himself), will start jardiance for renal benefits in addition to aprox 1% drop in A1c. Will also increase trulicity to 3mg, he has lost almost 20lbs. Assessment & Plan (01/16/2024 10:21 PM EDT): Not on target, will increase trulicity to 1.5mg, continue rest of medication, low carb/no sugar diet, follow up in 6 weeks Assessment & Plan (10/05/2023 7:18 PM EDT): Uncontrolled, will increase metformin and will start trulicity, decrease carbohydrate (pasta/bread/rice) eliminate sugars from diet, continue exercise. Assessment & Plan (06/30/2023 12:39 PM EST): Patient refers has kept physically active, he is not taking or checking his glucose, refers will start this week, discussed importance of adequate glucose control, follow up in 3 months with new labs Assessment & Plan (03/05/2023 11:49 AM EDT): On glipizide, refers FBS ranges from 100-120's, will place new lab orders for guidance Benign prostatic hyperplasia with urinary freque ncy 03/05/2023 Assessment & Plan (03/05/2023 11:49 AM EDT): Followed by urology, he will undergo a turp Screening for colon cancer 03/05/2023 Assessment & Plan (03/05/2023 11:50 AM EDT): Patient had colo/endoscopy on december of this year at [facility] will request results Right bundle branch block 03/04/2012 Bradycardia, sinus 03/04/2012 Encounters Date Type Department Care Team Description 09/08/2024 Travel 09/02/2024 Travel 09/01/[address] [facility] MED & PEDS [address] [place], [place] [phone] Erasto Carbajal MD Type 2 diabetes mellitus with hyperglycemia, without long-term current use of insulin ([facility]) (Primary Dx) 08/31/[address] [facility] PEDS [address] [place], [place] [phone] Regina Headley, PharmD 08/11/2024 Orders Only [facility] [address] [place], [place] [phone] Provider, MD Lisa from Last 3 Months Immunizations Name Administration Dates Next Due Hep B, adult 12/16/2021,10/02/2021,08/19/2021 INFLUENZA INJECTABLE QUADRIV ALANT CCIIV4 MDCK Multi-dose vial 03/10/2019 Influenza High-dose Quadriva lent Preservative Free 03/11/2023 Influenza Injectable Quadriv alant Preservative Free IIV4 MDCK 04/21/2022,02/20/2021 Influenza injectable quadriv alent preservative free 02/27/2020 Influenza, High Dose Seasona l, Preservative Free 04/24/2024 Pfizer Covid-19 Vaccine 12+ 09/08/2024 Pneumococcal Conjugate PCV 20 03/11/2023 Tdap 03/11/2023,02/07/2008 Zoster, Recombinant 04/30/2020,02/28/2020 Social History Tobacco Use Types Packs/Day Years Used Date Smoking Tobacco: Never Smokeless Tobacco: Never Tobacco Cessation:Counseling Given: Not Answered Alcohol Use Standard Drinks/Week Comments Never 0 (1 standard drink = 0.6 oz pur e alcohol) Depression Answer Date Recorded Patient Health Questionnaire-9 Score 0 03/28/2024 Patient Health Questionnaire-9 Score 0 03/28/2024 Last PHQ-9: Questionnaire Data Not on file 1 Housing Stability Answer Date Recorded What is your housing situation today? I have dangelo jackson 03/28/[address] you li ve. Do you have problems with any of the following? None of the above 03/28/2024 Food Insecurity Answer Date Recorded Within the past 12 months, y ou worried that your food would run out before you got money to buy more: Never True 03/28/2024 Within the past 12 months,th e food you bought just didn't last and you didn't have enough money to get more: Never True Transportation Answer Date Recorded In the past 12 months, has l ack of transportation kept you from medical appts, meetings, work or from getting things needed for daily living? No 03/28/2024 Utilities Answer Date Recorded In the past 12 months, has t he electric, gas, oil or water company threatened to shut off services in your home? No 03/28/2024 Depression Answer Date Recorded Patient Health Questionnaire-2 Score 0 03/28/2024 Internet Access Answer Date Recorded Internet Access Q1 Yes 03/28/2024 Internet Access Q2 Not on file 03/28/2024 Sex and Gender Information Value Date Recorded Sex Assigned at Male 03/30/2022 10:36 AM EDT Legal Sex Male 10:36 AM EDT Gender Identity Male 03/30/2022 10:36 AM EDT Sexual Orientation Straight 03/30/2022 10 :36 AM EDT Last Filed Vital Signs Vital Sign Reading Time Taken Comments Blood Pressure 160/84 09/08/2024 10:31 AM EDT Pulse 60 09/08/2024 10:31 AM EDT Temperature 36.4 ??C (97.5 ??F) 10/05/2023 10:29 AM E DT Respiratory Rate 20 10/05/2023 10:29 AM EDT Oxygen Saturation 98% 10/05/2023 10:29 AM EDT Inhaled Oxygen Concentration - - Weight 98.9 kg (218 lb) 10/05/2023 10:29 AM EDT Height 177.8 cm (5' 10 ) 10/05/2023 10:29 AM EDT Body Mass Index 31.28 10/05/2023 10:29 AM EDT Plan of Treatment Upcoming Encounters Date Type Department Care Team (Late st Contact Info) Description 12/18/2024 10:00 AM EDT Medication Management [facility] MED & PEDS [address] [place] [address] Regina Headley, PharmD [address] [place] [address] Health Maintenance Due Date Last Done Comments CT Colonography 1958 FIT DNA/Cologuard 1958 FIT 1958 FOBT 1960 Sigmoidoscopy 1958 Alcohol/Substance Use Screening 1970 Hepatitis A Vaccines (1 of 2 - Risk 2-dose series) 1977 RSV Patients and Patients Aged 60 years or older (1 - Risk 60-74 years 1-dose series) 2018 Diabetes: Urine Protein Screening 08/19/2024 08/20/2023, 12/04/2021, 12/04/2020, Additional history exists Lipid Panel 08/19/2024 08/20/2023, 07/0 11/2021, 12/04/2020, Additional history exists Diabetes: Foot Exam 10/04/2024 10/05/2023, 10/05/2023, 10/05/2023, Additional history exists Tobacco Screening 10/04/2024 10/05/2023 Diabetes: Hemoglobin A1C 12/08/2024 042 025, 08/20/2023, 05/19/2022, Additional history exists Depression Screening 03/28/2025 03/28/2024, 03/28/20 24 SDOH Screening 03/28/2025 03/28/2024 Eye Exam 07/28/2026 07/28/2024, 04/27/2023 Colonoscopy 01/26/2028 01/25/2023 Colorectal Cancer Screening 01/26/2028 DTaP/Tdap/Td Vaccines (3 - Td or Tdap) 03/11/2033 03/11/2023, 02/07/2008 Zoster Vaccines Completed 04/30/2020, 02/28/2020 Hepatitis C Screening Completed 08/11/2021 Hepatitis B Vaccines Completed 12/16/2021, 10/02/2021, 08/19/2021 Pneumococcal Vaccine: 50+ Years Completed 03/11/2023 Influenza Vaccine Completed 04/24/2024, , 04/21/2022, Additional history exists COVID-19 Vaccine Completed 09/08/2024, , 08/07/2020, Additional history exists HIB Vaccines Aged Out No longer eligi ble based on patient's age to complete this topic HPV Vaccines Aged Out No longer eligi ble based on patient's age to complete this topic IPV Vaccines Aged Out No longer eligi ble based on patient's age to complete this topic Meningococcal Vaccine Aged Out No finn jose g eligible based on patient's age to complete this topic RSV under 20 months Aged Out No longe r eligible based on patient's age to complete this topic Rotavirus Vaccines Aged Out No longer eligible based on patient's age to complete this topic Procedures Procedure Name Priority Date/Time Associated Diagnosis Comments POCT GLYCATED HEMOGLOBIN, TOTAL Routine 09/08/2024 10:20 AM EDT Type 2 diabetes mellitus with hyperglycemia, without long-term current use of insulin ([facility]) DIABETES EYE EXAM Routine 07/28/2024 2:11 PM EST LIPID PANEL, STANDARD Routine 08/20/2023 10:48 AM EDT Type 2 diabetes mellitus with hyperglycemia, without long-term current use of insulin ([facility]) ALBUMIN, RANDOM URINE W/CREATININE Routine 08/20/2023 9:55 AM EDT COLONOSCOPY Routine 01/25/2023 1:12 PM EDT ZZZ HISTORICAL HEPATITIS C AB W/REFL TO HCV RNA, QN, PCR Routine 08/11/2021 8:38 AM EDT from Last 3 Months or Most Recently Relevant to Health Maintenance Results * (ABNORMAL) POCT A1C (09/08/2024 10:20 AM EDT) Hemoglobin A1C 8.2(A) 4.0 - 6.0 % QC Media Lot # [id number] Lot# Expiration Date Blood 09/08/2024 10:2 0 AM EDT Erasto Ochoa MD POINT OF CARE TEST ENTER/EDIT ORDERABLES Final Result * Hm Diabetes Eye Exam (07/28/2024 2:11 PM EST) Lisa Provider HEALTH MAINTENANCE Final Result * (ABNORMAL) Lipid Panel, Standard (08/20/2023 10:48 AM EDT) Triglycerides 162(H) <150 mg/dL [facility] Comment:Desirable Triglyceri de: less than 150 mg/dLBorderline High Triglyceride 150-199 mg/dLHigh Triglyceride: 200-499 mg/dLVery High Triglyceride: greater than or equal to 5OO mg/dL Cholesterol 181 <200 mg/dL [facility] Comment:Desirable Cholestero l: less than 200 mg/dLBorderline High Cholesterol: 200-239 mg/dLHigh Cholesterol: greater than 239 mg/dL LDL Cholesterol Calculated 97 <100 mg/dL [facility] Comment:Desirable LDL: less than 100 mg/dLNear Optimal/Above Optimal LDL: 110- 129 mg/dLBorderline High LDL: 130-159 mg/dLHigh LDL: 160-189 mg/dLVery High LDL: greater than or equal to 190 mg/dL HDL Cholesterol 52 >40 mg/dL [facility] Comment:Desirable HDL: great er than 40 mg/dL Note: This HDL assay may give artificially low results in patients with liver disease. Blood Venous blood specimen / Unknown 08/20/2023 10:48 AM EDT 08/20/2023 2:25 PM EDT Erasto Ochoa MD LAB BLOOD ORDERABL ES Final Result [facility] [address] [place] [phone] * (ABNORMAL) Albumin, Random Urine W/Creatinine (08/20/2023 9:55 AM EDT) Creatinine, Urine 86.39 mg/dL [facility] Microalbumin Urine 55.0 mg/L [facility] Microalbum Creatinine Ratio Ur 63.6(H) <30 ug/mg cr [facility] Comment:Albumin/Creatinine R atio Reference Ranges: Normal: < 30 ug/mg creatinine Microalbuminuria: 30 - 300 ug/mg creatinineClinical Albuminuria: > 300 ug/mg creatinine 08/20/2023 9:55 AM EDT 08/20/2023 2:24 PM EDT Erasto Ochoa MD LAB URINE ORDERABL ES Final Result [facility] [address] [place] [phone] * Hm Colonoscopy (01/25/2023 1:12 PM EDT) Lisa Mckeon MD HEALTH MAINTENANCE Final Result * HEPATITIS C AB W/REFL TO HCV RNA, QN, PCR (08/11/2021 8:38 AM EDT) HEPATITIS C ANTIBODY NON-REACT BRENNAN NON-REACT BRENNAN [facility] INDEX 0.01 <1.00 [facility] Comment: ?? HCV antibody was non-reactive. There is no laboratory ?? evidence of HCV infection. ?? In most cases, no further action is required. However, if recent HCV exposure is suspected, a test for HCV RNA (test code 28865) is suggested. ?? For additional information please refer to http://education.Given Goods/faq/NDR45f5 (This link is being provided for informational/ educational purposes only.) ?? 08/11/2021 8:38 AM EDT Erasto Ochoa MD HISTORICAL/NON ORD ERABLE LABS Final Result [facility] [address] from Last 3 Months or Most Recently Relevant to Health Maintenance Insurance [place], [place] MEDICARE Member Subscriber Plan / Payer (Ef fective 2024-Present) Name:Timothy June Member ID:[id number] Relation to Subscriber:Self Name:Timothy June Subscriber ID:[id number] Payer ID:[id number] Group ID:Not on file Type:Medicare Address: [facility].[address] [address] [facility] FULL Care Teams Medical Corps Officer Relationship Specialty Start Date End Date Erasto Carbajal MD [address] [place] [phone] PCP - General Internal Medicine 08/24/19
--- OUTSIDE RECORDS SUMMARY | 2024-09-08 11:45 | XMS_ITS | Encounter Summary ---
Author Organization [employer] Address [address] [place] [address] Care Team Providers Care Assistant Commissioner Name Role Phone Erasto Carbajal MD Primary Care Prov ider Reason for Visit * Reason Onset Date Comments Referral 08/09/2023 Encounter Details Date Type Department Care Team ([facility] st Contact Info) Description 08/09/2023 Telephone [facility] [address] [place], [place] [phone] Erasto Carbajal MD [address] [place] [address] Referral Social History Tobacco Use Types Packs/Day Years [...] encounter Miscellaneous Notes * Telephone Encounter - Aurelia Coe - 08/09/2023 9:25 AM EDT Tc from Audra with [facility] calling to inform referral that was sent on 07/31/23 needs to be modified . States should be CT abdominal with and without contrast . Any questions may contact phone # [phone]. documented in this encounter Plan of Treatment Upcoming Encounters Date Type Department Care Team (Late st Contact Info) Description 12/18/2024 10:00 AM EDT Medication Management [facility] [address] [place], [place] [phone] Regina Headley, PharmD [address] [place] [address] documented as of this encounter Visit Diagnoses Not on filedocumented in this encounter Care Teams Assistant Commissioner Relationship Specialty Start Date End Date Erasto Carbajal MD [address] [place], [place] [phone] PCP - General Internal Medicine 08/24/19 documented as of this encounter
--- OUTSIDE RECORDS SUMMARY | 2024-09-08 11:45 | XMS_ITS | Encounter Summary ---
Author Organization [employer] Address [address] [facility] 7t [place] [address] Care Team Providers Care Exercise Scientist Name Role Phone Erasto Carbajal MD Primary Care Prov ider Encounter Details Date Type Department Care Team (Late st Contact Info) Description 08/11/2024 Orders Only [facility] [address] [place] [address] ProviderLisa MD Social History Tobacco Use Types Packs/Day Years [...] Description 12/18/2024 10:00 AM EDT Medication Management [facility] & P[facility] [address] [place] [address] Regina Headley PharmD [address] [place] [address] documented as of this encounter Procedures Procedure Name Priority Date/Time Associated Diagnosis Comments DIABETES EYE EXAM Routine 07/28/2024 2:11 PM EST documented in this encounter Results * Diabetes Eye Exam (07/28/2024 2:11 PM EST) Historical Provider HEALTH MAINTENANCE Final Result documented in this encounter Visit Diagnoses Not on filedocumented in this encounter Additional Health Concerns Assessment Noted Time PHQ-9 Depression Total Score: 0 03/28/20 24 10:57 AM EDT documented as of this encounter Care Teams Exercise Scientist Relationship Specialty Start Date End Date Erasto Carbajal MD [address] [place] [address] PCP - General Internal Medicine 08/24/19 documented as of this encounter
--- OUTSIDE RECORDS SUMMARY | 2024-09-08 11:45 | XMS_ITS | Encounter Summary ---
Author Organization [employer] Address [address] [place] [id number] Care Team Providers Care Mushroom Picker Name Role Phone Erasto Carbajal MD Primary Care Prov ider Encounter Details Date Type Department Care Team (Late st Contact Info) Description 05/20/2022 Orders Only [facility] MEDICINE [address] [place] [address] Erasto Carbajal MD [address] [place] [address] Mixed conductive and sensorineural hearing loss of both ears (Primary Dx) Social History Tobacco Use Types Packs/Day Years [...] Description 12/18/2024 10:00 AM EDT Medication Management [facility] MED & PEDS [address] [place], [place] [phone] Regina Headley, PharmD 230 [place] [address] documented as of this encounter Visit Diagnoses Diagnosis Mixed conductive and sensorineural hearing loss of both ears- Primary documented in this encounter Care Teams Mushroom Picker Relationship Specialty Start Date End Date SinErasto Ureña MD [address] [place] [phone] PCP - General Internal Medicine 08/24/19 documented as of this encounter
--- OUTSIDE RECORDS SUMMARY | 2024-09-08 11:45 | XMS_ITS | Encounter Summary ---
Author Organization [employer] Address [address] [facility] 7[address] [place] [address] Care Team Providers Care Claim Agent Name Role Phone Erasto Carbajal MD Primary Care Prov ider Encounter Details Date Type Department Care Team (Late st Contact Info) Description 04/27/2023 Abstract [facility] [address] [place] [address] Erasto Carbajal MD [address] [place] [address] Social History Tobacco Use Types Packs/Day Years [...] 12/18/2024 10:00 AM EDT Medication Management [facility] MED & PEDS 505 [place], [place] [phone] Regina Headley, PharmD 230 [place] [address] documented as of this encounter Visit Diagnoses Not on filedocumented in this encounter Care Teams Claim Agent Relationship Specialty Start Date End Date Erasto Carbajal MD [address] [place], [place] [phone] PCP - General Internal Medicine 08/24/19 documented as of this encounter
--- OUTSIDE RECORDS SUMMARY | 2024-09-08 11:45 | XMS_ITS | Encounter Summary ---
Author Organization [employer] Address [address] [facility] [address] [place] [address] Care Team Providers Care Sous Chef Name Role Phone Erasto Carbajal MD Primary Care Prov ider Encounter Details Date Type Department Care Team (Late st Contact Info) Description 09/10/2023 Orders Only [facility] MEDICINE [address] [place] [address] ProviderLisa MD Social History Tobacco Use Types Packs/Day Years Used Date Smoking Tobacco: Never Smokeless Tobacco: Never Alcohol Use Standard Drinks/Week Comments Never 0 (1 standard drink = 0.6 oz pur e alcohol) PHQ-2 Answer Date Recorded Patient Health Questionnaire-2 Score 2 03/05/2023 Housing Stability Answer Date Recorded What is your housing situation today? I have dangeloelier jackson 03/19/[address] you [...] Description 12/18/2024 10:00 AM EDT Medication Management [facility] MED & PEDS [address] [place] [address] Regina Headley PharmD 230 [place], [place] [phone] documented as of this encounter Procedures Procedure Name Priority Date/Time Associated Diagnosis Comments HM COLONOSCOPY Routine 01/25/2023 1:12 PM EDT documented in this encounter Results * Hm Colonoscopy (01/25/2023 1:12 PM EDT) Historical Provider HEALTH MAINTENANCE Final Result documented in this encounter Visit Diagnoses Not on filedocumented in this encounter Care Teams Sous Chef Relationship Specialty Start Date End Date Erasto Carbajal MD [address] [place] [address] PCP - General Internal Medicine 08/24/19 documented as of this encounter
--- OUTSIDE RECORDS SUMMARY | 2024-09-08 11:45 | XMS_ITS | Encounter Summary ---
Author Organization [employer] Address [address] [place] [address] Care Team Providers Care Returner Name Role Phone Erasto Carbajal MD Primary Care Prov ider Reason for Visit * Reason Onset Date Comments Request For Order(s) 08/10/2023 Encounter Details Date Type Department Care Team ([facility] st Contact Info) Description 08/10/2023 Telephone [facility] MEDICINE [address] [place] [address] Erasto Carbajal MD [address] [place] [address] Request For Order(s) Social History Tobacco Use Types Packs/Day Years [...] encounter Miscellaneous Notes * Telephone Encounter - Brianne Martin RN - 09/03/2023 1:59 PM EDT Order printed and re faxed to [facility] * Telephone Encounter - Mynor Kovacs - 08/12/2023 10:46 AM EDT Tc from [facility] returning call for status on CT order. Please see notes. * Telephone Encounter - Ysabel Ward - 08/10/2023 10:33 AM EDT [facility] calling to inform order for CT Liver 3 Phase should be: Ct Abdomen w/ and w/o Contrast documented in this encounter Plan of Treatment Upcoming Encounters Date Type Department Care Team (Late st Contact Info) Description 12/18/2024 10:00 AM EDT Medication Management [facility] MED & PEDS [address] [place] [address] Regina Headley, PharmD 230 [place], [place] [phone] documented as of this encounter Visit Diagnoses Not on filedocumented in this encounter Care Teams Returner Relationship Specialty Start Date End Date SinErasto Ureña MD [address] [place] [phone] PCP - General Internal Medicine 08/24/19 documented as of this encounter
--- OUTSIDE RECORDS SUMMARY | 2024-09-08 11:45 | XMS_ITS | Encounter Summary ---
Author Organization [employer] Address 75 [facility] 7t [place] [address] Care Team Providers Care Machine Skiver Name Role Phone Erasto Carbajal MD Primary Care Prov ider Encounter Details Date Type Department Care Team (Latest Contact Info) Description 09/08/2024 Travel Social History Tobacco Use Types Packs/Day Years [...] housing situation today? I have dangeloelier jackson 03/28/[address] you [...] 12/18/2024 10:00 AM EDT Medication Management [facility] MED & PEDS 505 [place] [address] Regina Headley, PharmD [address] [place] [address] documented as of this encounter Visit Diagnoses Not on filedocumented in this encounter Additional Health Concerns Assessment Noted Time PHQ-9 Depression Total Score: 0 03/28/20 24 10:57 AM EDT documented as of this encounter Care Teams Machine Skiver Relationship Specialty Start Date End Date Erasto Carbajal MD [address] [place] [address] PCP - General Internal Medicine 08/24/19 documented as of this encounter
--- OUTSIDE RECORDS SUMMARY | 2024-09-08 11:45 | XMS_ITS | Encounter Summary ---
Author Organization [employer] Address [address] [place] [address] Care Team Providers Care Fibre Cement Moulder Name Role Phone Erasto Carbajal MD Primary Care Prov ider Encounter Details Date Type Department Care Team (Late Contact Info) Description 09/28/2022 Orders Only [facility] MED & PEDS [address] [place] [address] Sandra Flores LPN Social History Tobacco Use Types Packs/Day [...] Description 12/18/2024 10:00 AM EDT Medication Management [facility] MED & PEDS [address] [place] [address] Regina Headley, PharmD [address] [place] [address] documented as of this encounter Visit Diagnoses Not on filedocumented in this encounter Care Teams Fibre Cement Moulder Relationship Specialty Start Date End Date Erasto Carbajal MD [address] [place] [address] PCP - General Internal Medicine 08/24/19 documented as of this encounter
--- OUTSIDE RECORDS SUMMARY | 2024-09-08 11:45 | XMS_ITS | Clinical Summary ---
Author Organization [facility] ity Address [address] [place] [address] Care Team Providers Care Carrier Driver Name Role Phone Sumeet Rico MD Primary Care Provider Social History Tobacco Use Types Packs/Day Years Used Date Smoking Tobacco: Never Assessed Sex and Gender Information Value Date Recorded Sex Assigned at Not on file Legal Sex Male 7:34 AM EST Gender Identity Not on file Sexual Orientation Not on file Plan of Treatment Health Maintenance Due Date Last Done Comments Pneumococcal Vaccine: 50+ Ye ars (1 of 1 - PCV) 02/05/2008 Zoster Vaccines (1 of 2) 02/05/2008 DTaP,Tdap,and Td Vaccines (2 - Td or Tdap) 02/06/2018 02/07/2008 Abdominal Aortic Aneurysm (A AA) Screen 05/14/2022 Cholesterol Screening (Lipid Panel) 05/14/2022 Colorectal Cancer Screening: Colonoscopy 05/14/2022 Depression Screening 05/14/2022 Hepatitis C Screening 05/14/2022 Social Influencers of Health Screening 05/14/2022 Falls Risk Assessment 2023 COVID-19 Vaccine ( - 2023-2 5 season) 2024 Influenza Vaccine (Season Ended) 2025 RSV Immunization Adult Patie nts (1 - 1-dose 75+ series) 2033 HIB Vaccines Aged Out No longer eligi ble based on patient's age to complete this topic HPV Vaccines Aged Out No longer eligi ble based on patient's age to complete this topic Hepatitis A Vaccines Aged Out No long er eligible based on patient's age to complete this topic Hepatitis B Vaccines Aged Out No long er eligible based on patient's age to complete this topic IPV Vaccines Aged Out No longer eligi ble based on patient's age to complete this topic MMR Vaccines Aged Out No longer eligi ble based on patient's age to complete this topic Meningococcal ACWY Vaccine Aged Out N o longer eligible based on patient's age to complete this topic Meningococcal B Vaccine Aged Out No l onger eligible based on patient's age to complete this topic RSV Immunization Patients Un daniel 20 months Aged Out No longer eligible b ased on patient's age to complete this topic Varicella Vaccines Aged Out No longer eligible based on patient's age to complete this topic Advance Directives Documents on File Type Date Recorded 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
[2024-09-08 14:43] LABS: Alanine Aminotransferase 29 U/L (0-40); Albumin Level 4.3 g/dL (3.5-5.0); Alkaline Phosphatase 155 U/L (39-117); Anion Gap 10 (12-20); Aspartate Amino Transferase 25 U/L (5-37); Bilirubin Total 0.8 mg/dL (0.0-1.0); Blood Urea Nitrogen 12 mg/dL (9-16); Calcium 9.5 mg/dL (8.4-10.2); Carbon Dioxide 26 mmol/L (22-29); Chloride 109 mmol/L (96-108); Cholesterol 159 mg/dL (<200); Estimated Glomerular Filt Rate > 60; Glucose Random 277 mg/dL (60-115); HDL Cholesterol 46 mg/dL (>40); LDL Cholesterol Calculated 87 mg/dL (<100); Potassium 4.3 mmol/L (3.3-5.1); Sodium 141 mmol/L (135-145); Total Protein 7.1 g/dL (6.5-8.0); Triglycerides 130 mg/dL (<150)
[2024-09-08 14:43] LABS: Estimated Average Glucose 171 mg/dL; Hemoglobin A1C 256.4149 umol/L; Hemoglobin A1c % 7.6 % (<6.0); Total Hemoglobin (HGBA1C) 4338.9352 umol/L
[2024-09-08 15:01] LABS: Creatinine Urine 93.71 mg/dL
== END 2024-09-08 10:51 | disposition home or self-care (01) ==
LOC: HO.CHCLDS 10:50
PROVIDERS: Visit Provider Internal Medicine
DX: E11.65 Type 2 diabetes mellitus with hyperglycemia (principal)
CPT/HCPCS: 36415; 80053; 80061; 82043; 82570; 83036